=== PATIENT | male | born 1995 | race Caucasian/White ===

== ENCOUNTER 2019-08-27 21:07 | Emergency (ER) | payer BC ==
[~2019-08-27] VITALS: Ht 182.9 cm; Wt 92.5 kg
[2019-08-27 21:15] VITALS: Ht 182.9 cm; Wt 92.5 kg
[2019-08-27 22:39] VITALS: BP 133/68
== END 2019-08-27 22:38 | disposition home or self-care (01) ==
LOC: ED 21:07
DX: R00.2 Palpitations (principal); R07.89 Other chest pain; K21.9 Gastro-esophageal reflux disease without esophagitis; Z88.1 Allergy status to other antibiotic agents
CPT/HCPCS: 99406